=== PATIENT | female | born 1965 ===

== ENCOUNTER 2024-03-05 05:13 | Day surgery (SDC) | payer OTHER ==
[2024-02-28 07:21] LABS: PH,URINE 5.5 (5.0-8.0); URINE APPEARANCE Clear; URINE BILIRRUBIN Negative (NEGATIVE); URINE BLOOD Negative; URINE COLOR Yellow; URINE GLUCOSE Negative (NEGATIVE); URINE KETONE Negative (NEGATIVE); URINE LEUKOCYTE Trace; URINE NITRATE Negative; URINE PROTEIN Negative (NEGATIVE); URINE UROBILINOGEN 0.2 E.U./dl
[2024-02-28 07:25] LABS: URINE BACTERIA 5001.1 uL (0.0-1933); URINE EPITHELIAL CELLS 98.4 uL (0.0-38.8); URINE RBC 44.7 uL (0.0-20.8); URINE WBC 31.4 uL (0.0-23.2)
[2024-02-28 07:27] LABS: HEMATOCRIT 41.8 % (36.0-45.00); MEAN CELL VOLUME 93.3 fL (80.00-100.00); MEAN CORPUSCULAR HEMOGLOBIN 31.1 pg (27.00-32.0); MEAN CORPUSCULAR HGB CONC 33.4 g/dl (32.0-36.0); PLATELET COUNT 196 K/uL (150-450); RED BLOOD COUNT 4.48 M/uL (4.00-6.00); RED CELL DISTRIBUTION WIDTH 13.1 % (11.5-14.5)
[2024-02-28 07:31] LABS: URINE CAST 0.58 uL (0.0-1.40)
[2024-02-28 07:38] LABS: URINE CRYSTALS FEW /HPF; URINE YEAST FEW /hpf
[2024-02-28 07:57] VITALS: BP 137/80
[2024-02-28 08:01] LABS: INR 0.98; PARTIAL THROMBOPLASTIN TIME 27.7 SECONDS (22.0-34.0); PROTHROMBIN TIME 10.7 SECONDS (9.0-11.5)
[2024-02-28 08:23] LABS: ALBUMIN 3.5 gm/dL (3.4-5.0); BILIRUBIN TOTAL 0.42 mg/dL (0.3-1.2); CREATININE SERUM 0.69 mg/dL (0.55-1.02); GFR 87.38; GLOBULINA 2.6 G/DL (2.4-3.5); POTASSIUM 4.23 mEq/L (3.5-5.1); TOTAL PROTEIN 6.1 gm/dL (6.4-8.2)
[~2024-03-05] VITALS: Wt 5.0 kg
[~2024-03-05 05:13] MED LIST: COZAAR25 MG
[2024-03-05] MEDS ORDERED: DEXAMETHASONE SODIUM PHOSPHATE 4 MG/ML VIAL ONE (06:25)
[2024-03-05] MEDS ORDERED: ENALAPRILAT DIHYDRATE 1.25 MG/ML VIAL IV ONE ×3 (10:28→11:00)
== END 2024-03-05 13:15 | disposition home or self-care (01) ==
LOC: SURH 05:13 → CIR.AMB 05:13 → O/R 05:13 → EDSTATUS 07:15 → SURH 07:15 → O/R 11:12 → CIR.AMB 13:15
PROVIDERS: ATTEND Surgery
DX: E21.0 Primary hyperparathyroidism (principal); D35.1 Benign neoplasm of parathyroid gland